=== PATIENT | female | born 1990 | race Caucasian/White ===

== ENCOUNTER → 2019-12-16 21:02 | Outpatient (CLI) | payer BC, SELFPAY ==
[2019-12-16 16:45] VITALS: BMI 44.9
[2019-12-16 21:26] LABS: Cholesterol 198 mg/dL (200); High Density Lipoprotein 40 mg/dL; Triglycerides 178 mg/dL; Very Low Density Lipoprotein 36 mg/dL (5-40)
== END ==
PROVIDERS: Referring Provider Nurse Practitioner; Visit Provider Nurse Practitioner
DX: E78.00 Pure hypercholesterolemia, unspecified (principal)
CPT/HCPCS: 80061

== ENCOUNTER 2021-12-14 08:03 | Day surgery (SDC) | payer OTHER, SELFPAY ==
--- NOTE | 2021-12-07 11:33 | EKG12_ITS ---
Test Reason : PREOP Blood Pressure : / mmHG Vent. Rate : 110 BPM Atrial Rate : 110 BPM P-R Int : 118 ms QRS Dur : 084 ms QT Int : 344 ms P-R-T Axes : 065 030 032 degrees QTc Int : 465 ms Sinus tachycardia Otherwise normal ECG Confirmed by JALEESA MAGUIRE, KAPIL ([id number]), department editor ARA CORADO ([id number]) on 12/08/2021 10:29:57 A M Referred By: Cary Johnson Confirmed By:JEFFERY LAZCANO MD
[2021-12-07 12:52] LABS: Hematocrit 39.5 % (37-47); Hemoglobin 12.8 g/dL (12.0-15.0); Mean Corp Hgb Conc 32.4 g/dL (32-36); Mean Corpuscular Hgb 30.8 pg (27.0-32.0); Mean Corpuscular Volume 95.2 fL (81-99); Mean Platelet Vol. 10.5 fl (6.2-12.0); Platelet Count 250 K/mm3 (150-450); RBC Distribution Width CV 12.3 % (11.6-14.6); RBC Distribution Width SD 43.5 fl (35.1-43.9); Red Blood Count 4.15 M/mm3 (4.2-5.4); White Blood Count 8.4 K/mm3 (4.4-11.0)
[2021-12-14] VITALS (7 sets, daily range): BP systolic 106–134; BP diastolic 68–96; PULSE 65–89; RESP 16–20; TEMP 36.1–36.9; O2SAT 92–100; BMI 45.3
--- NOTE | 2021-12-14 08:43 | PCM.HP.BLA ---
History and Physical Date of Admission: 12/14/21 HISTORY OF PRESENT ILLNESS: 31 yo female, desires permanent sterilization ALLERGIES: No Known Drug Allergies MEDICATIONS HISTORY: Patient is also takin. buspirone 10 mg tablet, One pill by mouth twice a day 2. Celexa 40 mg tablet, One pill by mouth once a day 3. Ritalin 10 mg tablet, One pill by mouth three times a day MEDICAL HISTORY: Illnesses - Anxiety, Depression, Idopathis Hypersomnia, MVP SURGICAL HISTORY: 1. T and A PAST PREGNANCIES: Total Pregnancies - 3; Full Term Pregnancies - 2; Premature - 0; Abortions, Induced - 0; Abortions, Spontaneous - 1; Ectopics - 0; Multiple Births - 0; Living Children - 2 FAMILY HISTORY: noncontributory SOCIAL HISTORY: Alcohol Use - drinks occasionally Smoking - 1/2 pack/day--advised to quit Drug use - denies REVIEW OF SYSTEMS: GENERAL - Denies fever, or chills SKIN - Denies skin changes EYES - Denies visual changes EARS - Denies difficulty hearing NOSE - Denies nasal congestion or bleeding MOUTH - Denies sore throat or difficulty swallowing NECK - Denies pain or swelling RESPIRATORY - Denies shortness of breath or wheezing CARDIOVASCULAR - Denies palpitations or chest pain GASTROINTESTINAL - Denies nausea, vomiting, diarrhea, constipation GENITOURINARY - Denies dysuria, frequency of urination, incontinence of urine MUSCULOSKELETAL - Denies joint or muscle pain NEUROLOGICAL - Denies localized numbness or weakness PSYCHIATRIC - Denies depression or anxiety ENDOCRINE - Denies heat or cold intolerance, weight loss or gain HEMATO-IMMUNOLOGIC - Denies excessive bleeding with cuts PHYSICAL EXAMINATION BP- 110/84 Sitting, Right arm, large cuff Weight- [id number] lbs Height- 66.0 inch BMI:45.87 CONSTITUTIONAL - NAD, well nourished, and well developed SKIN - No rash, lesions, or ulcers HEENT - Normocephalic, PERRLA, EOMI LUNGS - CTA x2 without wheezes, crackles or rales CARDIAC - Regular rate and rhythm without rubs, murmurs, or gallops EXTREMITIES - No edema or calf tenderness NEUROLOGICAL - Cranial nerves II-XII grossly intact PSYCHIATRIC - A and O to time, place, person, mood and affect ASSESSMENT/PLAN BY DIAGNOSIS: Desires permanent sterilization. Has nexplanon in place Discussed procedure: laparoscopic bilateral salpingectomy. R/B/A discussed. Risks include, but are not limited to: risk of bleeding to the point of transfusion, infection, injury to surrounding tissue (bowel/bladder/major vessels), VTE, ICU admission Has completed childbearing. Aware this is a permanent procedure.
[2021-12-14] MEDS: Lactated Ringers 1,000 ML 125 ML IV (08:52)
[2021-12-14 09:02] LABS: Internal QC Validated? YES +Cl - CLEAR BKGD; Pregnancy, Urine Negative Negative
[2021-12-14 09:15] LABS: Anion Gap 8 (5-15); BUN 13 mg/dL (7-18); BUN/Creat Ratio 15.2 RATIO (10-20); Calcium,Total 8.9 mg/dL (8.5-10.1); Chloride 106 mmol/L (98-107); Creatinine, Serum 0.86 mg/dL (0.55-1.02); EST Glomerular Filtration Rate 81 mL/min (>60); Est Glom Filt Rate - Afr Amer 98 mL/min (>60); Glucose 92 mg/dL (74-106); Potassium 3.8 mmol/L (3.5-5.1); Sodium Level 140 mmol/L (136-145)
--- NOTE | 2021-12-14 09:20 | OP.PCM_ITS ---
Report of Operation Date of Procedure: 12/14/21 Pre-Operative Diagnosis: Desires permanent sterilization Post-Operative Diagnosis: Desires permanent sterilization Surgery/Procedure Performed:: Laparoscopic bilateral salpingectomy Description of Surgical Findings:: Normal-appearing external genitalia. Moderate uterine descensus. Normal- appearing uterus, bilateral fallopian tubes, ovaries. Type of Anesthesia: General Specimen's removed: Bilateral fallopian tubes Estimated Blood Loss (mL): 5 cc Fluids Replaced: 700 cc Description of Procedure: Indications/risk/benefits: This is a 31-year-old female who desires permanent sterilization. All risk, benefits, alternatives discussed patient. Risks of but are not limited to: Risk of bleeding twin transfusion, infection, injury to surrounding tissue including bowel/bladder/major abdominal vessels, risk of regret, VTE, ICU admission. Patient aware and consented. Procedure: Patient taken to the operating room and placed under general anesthesia. Patient placed in dorsal lithotomy position and prepped and draped in the usual sterile fashion. Weighted speculum placed in posterior vagina and Ferguson retractor used to visualize the cervix. Anterior lip of the cervix grasped with single-tooth tenaculum. Cervix sequentially dilated. Uterine manipulator placed. Tenaculum removed. Hernandez catheter placed. Gloves were changed and attention turned to the anterior abdominal wall. 5 mm central infraumbilical incision made with scalpel. 5 mm trocar placed under direct visualization. Abdomen insufflated. Left 8 mm incision made, 8 mm trocar placed under direct visualization. Left 5 mm incision and trocar placed under direct visualization. Left fallopian tube identified from cornua to fimbriated end. Left tube grasped at the fimbriated end. LigaSure device utilized to coagulate and cut at the mesosalpinx. Left fallopian tube removed through trocar. Right fallopian tube identified from cornua to fimbriated end. Fimbriated end grasped and LigaSure device used to coagulate and cut at the mesosalpinx. Right fallopian tube removed through trocar. Mesosalpinx and cornea hemostatic. Abdomen desufflated. Trochars removed. Incisions closed subcuticular stitch and skin glue. Hernandez catheter and uterine manipulator removed. At the end of the procedure all needle, lap, sponge counts were correct. Urine output: 25 cc urine. Complications None
--- NOTE | 2021-12-14 09:20 | PCM.DC ---
Discharge Instructions Diet Discharge Diet: No restrictions Activity Discharge Activity: Return to Normal Activity and May Shower May resume sexual activity in: 2 weeks Weight Bearing Status: Weight bearing as tolerated Lifting Restrictions: No greater than 25 pounds Dressing / Incision Call your doctor if your incision/area has: Continuous Slow Oozing, Increased Redness and Foul Smelling Discharge Call your doctor if you observe: Fever of 101 or Higher, Inability to urinate, Inability to have a bowel movement, Using more than 1 pad per hour, Shortness of breath, Dizziness, Chest pain and Calf discomfort Cleanse incision/area with: Soap & Water and Keep Dressing Clean & Dry Follow Up Care Please Follow Up With: Cary Johnson DO When: 1-2 week post operative appointment Test Results: Test results from this visit will be discussed in further detail at your follow-up appointment, if applicable. Discharge Plan Admission Primary Reason for Your Visit: Tubal sterilization Attending Provider: Cary Johnson Primary Care Provider: Sonja Hogue NP Discharge Orders/Prescriptions Prescriptions: New oxycodone 5 mg tablet 5 mg PO Q6H PRN (Reason: pain) 3 Days Qty: 10 0RF Continued Nexplanon 68 mg implant 1 implant subdermal ONCE buspirone 10 mg tablet 10 mg PO BID Qty: 180 3RF citalopram [Celexa] 40 mg Tablet 40 mg PO DAILY methylphenidate HCl [Ritalin] 10 mg Tablet 10 mg PO TID cholecalciferol (vitamin D3) [Vitamin D3] 50 mcg (2,000 unit) Capsule 50 mcg PO DAILY Referrals / Follow Up: Sonja Hogue NP, [employer] [Primary Care Provider] - Disposition Disposition (needs filled in before D/C Order can be placed): Home, Self Care
--- NOTE | 2021-12-14 09:25 | FALS_PTH ---
PATIENT: JOSEF NAPIER LOC: [facility] [place] U#:[id number] AGE/SX: 31/F ROOM: RE12/14/[address]: Dr. Cary Johnson DO : 1990 BED: DIS: 12/14/2021 SPEC #: [id number] RECD: 12/14/21 13:18 STATUS: KYLER RENehemias #: [id number] DRU: 12/14/21 09:[address]: Cary Johnson DEPT: SURGICAL PATHOLOGY RECD BY: Brandie Joshua ENTERED: 12/15/21 08:12 SP TYPE: FALL TUBES OTHR DR: Sonja Hogue, JUAN M Tissues: Fallopian tube Procedures: Surgery Specimen Level II HEADER OPERATION: Laparoscopic salpingectomy PRE-OP DIAGNOSIS: Sterilization TISSUE SUBMITTED: Bilateral portion of fallopian tubes MICROSCOPIC DIAGNOSIS Right and left fallopian tubes, bilateral salpingectomies: Benign paratubal cysts. Complete segments of fallopian tubes. AM:duong 12/18/2021 MICROSCOPIC DESCRIPTION Slides are reviewed. GROSS DESCRIPTION Received in fixative is one container labeled with the patient's name and designated bilateral fallopian tubes. The specimen consists of two fallopian tubes with an average length of 4.5 cm and has an average diameter of 0.5 cm. Both fallopian tubes have normal fimbriated ends. No mass lesions are identified. Fixed Wing Pilot sections are submitted in two cassettes as follows: 1 - one fallopian tube, 2??the other fallopian tube. / AM:duong 12/15/2021 TC:5 CPT: 69071 x2
[2021-12-14] MEDS: HYDROcodone Bitartrate/Apap 5/325 Tablet PO (11:51)
== END 2021-12-14 18:07 | disposition home or self-care (01) ==
LOC: SDC 08:10 → AC 08:18
PROVIDERS: Anesthesiology; PCP Nurse Practitioner Family; Referring Provider Student in an Organized Health Care Education/Training Program; Visit Provider Student in an Organized Health Care Education/Training Program
PROC: (CPT 58661; principal; 2021-12-14 09:10)
DX: Z30.2 Encounter for sterilization (principal); N83.8 Other noninflammatory disorders of ovary, fallopian tube and broad ligament; F17.210 Nicotine dependence, cigarettes, uncomplicated; F41.9 Anxiety disorder, unspecified; F32.A Depression, unspecified; Z79.899 Other long term (current) drug therapy
CPT/HCPCS: 58661; 00840; 36415; 80048; 81025; 85027; 86850; 86900; 86901; 88302; 93005; J7120; J2405

== ENCOUNTER → 2022-05-15 | Outpatient (CLI) | payer OTHER, SELFPAY ==
[2022-05-25 16:34] LABS: HPV APTIMA, High Risk Negative (Negative)
== END | disposition home or self-care (01) ==
LOC: LABSPEC 10:36
PROVIDERS: PCP Nurse Practitioner Family; Visit Provider Student in an Organized Health Care Education/Training Program
DX: Z12.4 Encounter for screening for malignant neoplasm of cervix (principal)
CPT/HCPCS: 87624; 88175; G0145